=== PATIENT | male | born 1995 | race Caucasian/White ===

== ENCOUNTER 2024-08-08 11:44 | Outpatient (CLI) | payer OTHER, SELFPAY ==
--- NOTE | 2024-08-08 11:45 | CRLHL7_ITS ---
For Patients: As a result of the Century Cures Act, medical imaging exams and procedure reports are released immediately into your electronic medical record. You may view this report before your referring provider. If you have questions, please contact your health care provider. Indication: Fractures follow-up Technique: Three views left hand IMPRESSION: Percutaneous fixation pins within the long finger, ring finger and little finger noted. Near anatomic alignment regarding the multifocal fractures. Partial amputation of the distal long finger. Metacarpals appear intact. Dictated by Wyatt Montilla MD @ 08/08/2024 12:20:48 PM (Electronically Signed)
== END 2024-08-08 11:45 | disposition home or self-care (01) ==
LOC: RAD 11:47
PROVIDERS: Visit Provider Surgery Plastic and Reconstructive Surgery
DX: S62.609B Fracture of unspecified phalanx of unspecified finger, initial encounter for open fracture (principal)
CPT/HCPCS: 73130

== ENCOUNTER 2024-09-05 12:04 | Outpatient (CLI) | payer OTHER, SELFPAY ==
--- NOTE | 2024-09-05 12:00 | CRLHL7_ITS ---
For Patients: As a result of the Cures Act, medical imaging exams and procedure reports are released immediately into your electronic medical record. You may view this report before your referring provider. If you have questions, please contact your health care provider. INDICATION: Follow up fractures and pin placement TECHNIQUE: Three views of the left hand COMPARISON: 08/08/2024 FINDINGS: Post amputation of the middle finger to the level of the middle phalangeal head. Shaft fractures of the middle finger proximal phalanx, ring finger middle and proximal phalanges and the little finger proximal phalanx held in good alignment by pins, as before. Early callus formation. Near-anatomically aligned fracture of the little finger distal phalanx. IMPRESSION: Middle, ring and little finger fractures filled in good alignment by pins, as before. Early healing noted. Dictated by Tahir Oliver MD @ 09/06/2024 11:08:29 AM (Electronically Signed)
== END 2024-09-05 12:05 | disposition home or self-care (01) ==
LOC: RAD 12:04
PROVIDERS: Visit Provider Surgery Plastic and Reconstructive Surgery
DX: S62.607D Fracture of unspecified phalanx of left little finger, subsequent encounter for fracture with routine healing (principal); S62.603D Fracture of unspecified phalanx of left middle finger, subsequent encounter for fracture with routine healing; S62.605D Fracture of unspecified phalanx of left ring finger, subsequent encounter for fracture with routine healing
CPT/HCPCS: 73130

== ENCOUNTER 2024-10-06 12:46 | Outpatient (CLI) | payer OTHER, SELFPAY ==
--- NOTE | 2024-10-06 13:00 | CRLHL7_ITS ---
For Patients: As a result of the Century Cures Act, medical imaging exams and procedure reports are released immediately into your electronic medical record. You may view this report before your referring provider. If you have questions, please contact your health care provider. Indication: Follow-up fracture Technique: Three views left hand Comparison: 09/05/2024 IMPRESSION: Removal of percutaneous pins from the long finger, ring finger and little finger. Partial callus formation noted about the multifocal fractures. Alignment is similar. Dictated by Wyatt Montilla MD @ 10/06/2024 2:02:47 PM (Electronically Signed)
== END 2024-10-06 12:47 | disposition home or self-care (01) ==
LOC: RAD 12:46
PROVIDERS: Visit Provider Surgery Plastic and Reconstructive Surgery
DX: S62.605D Fracture of unspecified phalanx of left ring finger, subsequent encounter for fracture with routine healing (principal); S62.603D Fracture of unspecified phalanx of left middle finger, subsequent encounter for fracture with routine healing; S62.607D Fracture of unspecified phalanx of left little finger, subsequent encounter for fracture with routine healing
CPT/HCPCS: 73130

== ENCOUNTER 2024-10-19 14:00 | Outpatient (CLI) | payer OTHER, SELFPAY ==
--- NOTE | 2024-10-19 14:00 | CRLHL7_ITS ---
For Patients: As a result of the Century Cures Act, medical imaging exams and procedure reports are released immediately into your electronic medical record. You may view this report before your referring provider. If you have questions, please contact your health care provider. Indication: Fractures Technique: Three views of the left ring finger IMPRESSION: Prior amputation at the level of the middle phalanx distally. Comminuted fracture of the proximal phalangeal mid diaphysis noted with near anatomic alignment. Dictated by Wyatt Montilla MD @ 10/19/2024 3:57:12 PM (Electronically Signed)
== END 2024-10-19 14:01 | disposition home or self-care (01) ==
LOC: RAD 14:00
PROVIDERS: Visit Provider Surgery Plastic and Reconstructive Surgery
DX: S62.605A Fracture of unspecified phalanx of left ring finger, initial encounter for closed fracture (principal)
CPT/HCPCS: 73140

== ENCOUNTER 2024-10-31 10:07 | Outpatient (CLI) | payer OTHER, SELFPAY ==
--- NOTE | 2024-10-31 10:15 | CRLHL7_ITS ---
For Patients: As a result of the Cures Act, medical imaging exams and procedure reports are released immediately into your electronic medical record. You may view this report before your referring provider. If you have questions, please contact your health care provider. Indication: FRACTURE POSSIBLE INFECTION Technique: Three views left hand Comparison: 10/19/2024, 10/06/2024, 09/05/2024, 08/08/2024 IMPRESSION: Fracture involving the proximal phalanx of the long finger demonstrates mild progressive healing with stable near anatomic alignment. Fracture involving the proximal phalanx of the little finger also demonstrates progressive healing with stable near anatomic alignment. Irregularity about the proximal interphalangeal joint noted with maintenance of the bony integrity. No acute periostitis. This is likely related to expected healing response. Multifocal fractures at the ring finger are again noted with stable alignment. Stable appearance of the proximal interphalangeal joint. Similar soft tissue swelling about the proximal interphalangeal joint. Dictated by Wyatt Montilla MD @ 11/01/2024 10:32:33 AM (Electronically Signed)
== END 2024-10-31 10:08 | disposition home or self-care (01) ==
PROVIDERS: Visit Provider Surgery Plastic and Reconstructive Surgery
DX: S62.009 Unspecified fracture of navicular [scaphoid] bone of unspecified wrist (principal)
CPT/HCPCS: 73140

== ENCOUNTER 2025-01-02 11:14 | Outpatient (CLI) | payer OTHER, SELFPAY ==
--- NOTE | 2025-01-02 11:15 | CRLHL7_ITS ---
For Patients: As a result of the Cures Act, medical imaging exams and procedure reports are released immediately into your electronic medical record. You may view this report before your referring provider. If you have questions, please contact your health care provider. Indication: Follow-up fracture Technique: Three views left ring finger Comparison: 10/31/2024 IMPRESSION: Continued maturation of callus about the fracture is involving the middle phalanx and proximal phalanx with stable alignment. Chip fracture fragment adjacent to the distal tuft again noted. Deformity of the proximal interphalangeal joint is similar. Dictated by Wyatt Montilla MD @ 01/02/2025 12:12:30 PM (Electronically Signed)
== END 2025-01-02 11:15 | disposition home or self-care (01) ==
LOC: RAD 11:14
PROVIDERS: Visit Provider Surgery Plastic and Reconstructive Surgery
DX: Z09 Encounter for follow-up examination after completed treatment for conditions other than malignant neoplasm (principal); S62.603D Fracture of unspecified phalanx of left middle finger, subsequent encounter for fracture with routine healing
CPT/HCPCS: 73140